=== PATIENT | female | born 1965 | race Caucasian/White ===

== ENCOUNTER → 2016-11-22 | Outpatient (CLI) | payer MEDICAID ==
[~2016-11-22] MED LIST: DOXYCYCLINE MO100 MG PO; GABAPENTIN 600600 MG PO; LEVOTHYROXIN0.075 M1 PO; MOTRIN600 M1 PO; MUCINEX600 M1 PO; MULTI-DAY VITA1 EACH PO; OMEPRAZOLE20 MG PO; PROZAC 20MG CAP20 MG PO; TYLENOL WITH CO1 TA1 PO; TYLENOL325 MG PO; XANAX 1MG TABLET1 MG PO
[2016-11-22 21:28] LABS: AMPHETAMINES/METAMPHETAMINES NEGATIVE ng/mL (<1000)
== END ==
LOC: LAB 17:26
PROVIDERS: Emergency Medicine
DX: Z79.899 Other long term (current) drug therapy (principal)

== ENCOUNTER → 2016-12-06 | Outpatient (CLI) | payer MEDICAID ==
--- NOTE | 2016-12-06 11:20 | RADIOLOGY REPORT PS360 ---
MRI-L-SPINE W/O, MRI-3D RENDERING/MYELOGRAM HISTORY: Low back pain with bilateral leg pain BACK PAIN ORDERING PHYSICIAN: Moi Hobbs MD PATIENT AGE: 51 years COMPARISON: 12/05/2014 TECHNIQUE: Standard multiplanar multiecho sequences are performed without contrast. 3-D MIP and myelographic images are also rendered and reviewed FINDINGS: There is normal alignment. The spinal cord ends at the T12-L1 level. L1-L2, L2-L3, and L3-L4 have an unremarkable appearance. L4-5: There is mild bulging disc at L4-L5 which is slightly eccentric toward the right. There is mild facet and ligamentum hypertrophy with mild bilateral foraminal narrowing and mild right lateral recess narrowing. The bulging disc does abut the anterior aspect of the right L5 nerve root. A small annular tear is suspected involving the disc at L4-L5. L5-S1: Slight increased signal involves the posterior and right aspect of the disc suggesting an annular tear. No significant protrusion or herniation evident. No extruded herniated disc or canal stenosis. IMPRESSION: 1. There is mild bulging disc at L4-L5 which is slightly eccentric toward the right. There is mild facet and ligamentum hypertrophy with mild bilateral foraminal narrowing and mild right lateral recess narrowing. The bulging disc does abut the anterior aspect of the right L5 nerve root. A small annular tear is suspected involving the disc at L4-L5. 2. Slight increased signal involves the posterior and right aspect of the disc at L5-S1 suggesting an annular tear. No significant protrusion or herniation evident. 3. No extruded herniated disc or canal stenosis with no significant change compared to the previous exam
== END ==
LOC: RAD 08:40
DX: M54.5 Low back pain (principal)

== ENCOUNTER → 2017-01-03 | Outpatient (CLI) | payer MEDICAID ==
[2017-01-03 14:11] LABS: HEMOGLOBIN 14.6 g/dL (12.2-16.2); LYMPH # 2.3 K/mm3 (0.7-4.5); LYMPH % 36.1 % (10-50.0)
[2017-01-03 15:18] LABS: AMPHETAMINES/METAMPHETAMINES NEGATIVE ng/mL (<1000)
[2017-01-03 16:03] LABS: BUN 15 mg/dL (7-18)
[2017-01-03 16:25] LABS: GFR (ESTIMATED) 53 ML/MIN (59-)
[2017-01-04 08:42] LABS: RA Latex Turbid. <10.0 IU/mL (0.0-13.9)
[2017-01-04 18:40] LABS: Antinuclear Antibodies, IFA Negative (.)
== END ==
LOC: LAB 13:22
PROVIDERS: Emergency Medicine
DX: E78.5 Hyperlipidemia, unspecified (principal); M19.90 Unspecified osteoarthritis, unspecified site; Z79.899 Other long term (current) drug therapy

== ENCOUNTER 2017-02-04 11:46 | Day surgery (SDC) | payer MEDICAID ==
[~2017-02-04] VITALS: Ht 172.7 cm; Wt 93.4 kg
[~2017-02-04 11:46] MED LIST changes: +LIPITOR20 MG PO; +TIZANIDINE HYDRO4 MG PO
[2017-02-04 11:56] VITALS: BP 122/73
[2017-02-04 12:04] VITALS: BP 122/73
[2017-02-04 12:06] VITALS: BP 144/80
--- NOTE | 2017-02-04 12:15 | Procedure Note ---
Procedure detail Date of procedure: 02/04/17 Anesthesiologist: Juan Ivory M.D. Complications: None Pre-procedure diagnosis: Sacroiliitis Post-procedure diagnosis: Same Indications for procedure: This patient is a pleasant 51-year-old white female who we are treating for low back pain and bilateral hip pain. She has tenderness over both SI joints. She does have a positive Malgorzata's test bilaterally. We will do bilateral SI joint injections under fluoroscopy today to see if this helps with her pain symptoms. Procedure detail: Informed consent was obtained and the risks and benefits of the procedure were explained to the patient. The patient was taken to the procedure room and noninvasive monitors were placed including a noninvasive blood pressure cuff and pulse oximeter. The patient was placed prone on the procedure table. Both hips were cleansed using Betadine as a cleansing solution. C-arm fluoroscopy was used to view the right sacroiliac joint. The skin and subcutaneous tissues were anesthetized using lidocaine 1.5% and a 25-gauge needle. After this, a 22-gauge spinal needle was inserted under fluoroscopic guidance into the inferior aspect of the right sacroiliac joint. Omnipaque dye was injected and good spread was seen throughout the joint. After this, approximately 5 mL of bupivacaine, 0.25% and Depo-Medrol, 40 mg was incrementally injected into the right sacroiliac joint. We then moved to the left sacroiliac joint. The skin and subcutaneous tissues were anesthetized using lidocaine 1.5% and a 25-gauge needle. After this, a 22- gauge spinal needle was inserted under fluoroscopic guidance into the inferior aspect of the left sacroiliac joint. Omnipaque dye was injected and good spread was seen throughout the joint. After this, approximately 5 mL of bupivacaine, 0.25% and Depo-Medrol, 40 mg was incrementally injected into the left sacroiliac joint. The patient tolerated the procedure well with no complications. The patient was observed in the Pain Clinic and then was discharged home neurologically intact. Plan and disposition: Patient did experience abnormally increased pain during the injection she is very hypersensitive and this is probably due to the medications that she is currently taking. I'm very concerned about the opioids, benzodiazepines and marijuana that she tested positive for on her urine drug screen. We will not be giving this patient a oral medications. We will follow-up with her in 2 weeks to reevaluate. at [id number]
[2017-02-04 12:28] VITALS: BP 104/65
== END 2017-02-04 12:28 | disposition home or self-care (01) ==
LOC: PM 11:46
PROC: 3E0U33Z Introduction of Anti-inflammatory into Joints, Percutaneous Approach (ICD-10-PCS; principal; 2017-02-04)
PROC: 3E0U3BZ Introduction of Anesthetic Agent into Joints, Percutaneous Approach (ICD-10-PCS; 2017-02-04)
DX: M46.1 Sacroiliitis, not elsewhere classified (principal)
CPT/HCPCS: G0260; J1030; Q9966